=== PATIENT | male | born 1980 | race Caucasian/White ===

== ENCOUNTER 2020-10-27 14:27 | Emergency (ER) | payer OTHER, MEDICAID, SELFPAY ==
[2020-10-27 14:39] VITALS: BP 118/70; PULSE 72; RESP 16; TEMP 36.4; O2SAT 99; BMI 25.8
--- NOTE | 2020-10-27 14:55 | ED.GENADULT ---
HPI - General Adult General Chief complaint: Urogenital-Male Stated complaint: ANAL FISSURE, DRAINING, HURTS Time Seen by Provider: 10/27/20 14:30 Source: patient Mode of arrival: Ambulatory Limitations: no limitations History of Present Illness HPI narrative: Patient is a 39-year-old male who has had many weeks/months of issues with hemorrhoids and anal fissures. He has not followed up for any of these symptoms. He states that for the past couple days he has noticed pain with having bowel movements and also drainage. He also feels like there is a mass around his anal area. Related Data Home Medications Medication Instructions Recorded Confirmed No Known Home Medications 10/27/20 10/27/20 Allergies Allergy/AdvReac Type Severity Reaction Status Date / Time No Known Drug Allergies Allergy Verified 10/27/20 14:43 Review of Systems Constitutional Constitutional: Denies fever(s) Cardiovascular Cardiovascular: Denies chest pain and Denies dyspnea Respiratory Respiratory: Denies dyspnea Gastrointestinal Gastrointestinal: Denies abdominal pain Comments: Leakage around anus Integumentary/Breasts Skin/Breast: Denies rash Neurologic Neurologic: Denies behavioral changes Psychiatric Psychiatric: Denies behavioral changes Hematologic/Lymphatic On Anticoagulants: No Patient History Medical History Anal fissure Social History Smoking Status: Never smoker Smoking Status: Never smoker alcohol intake frequency: other Substance Use Type: does not use Exam Initial Vital Signs Initial Vital Signs: Vital Signs Temperature 97.6 F 10/27/20 14:39 Pulse Rate 72 10/27/20 14:39 Respiratory Rate 16 10/27/20 14:39 Blood Pressure 118/70 10/27/20 14:39 Pulse Oximetry 99 10/27/20 14:39 Const General: cooperative GI Inspection: non-distended Palpation: soft Other: Patient had normal rectal tone. He did have a 0.5 cm by 0.5 cm firm what appeared to be skin tag right next to his anus. Just posterior to this there was an area that was draining would look like. Material however there was only a small amount and could not express any more from the area. Internal exam shows no internal hemorrhoids. There does not appear to be any external hemorrhoids. Did not feel any mass in the area. I do have low suspicion for a perirectal/perianal abscess. I did not visualize any fissures although his history is consistent with this. Skin Lesions: no lesions Rashes: no rashes Neuro General: patient alert and patient awake Extrem General: capillary refill normal Psych Appearance: grossly normal Course Vital Signs Vital signs: Vital Signs - 8 hr 10/27/20 14:39 Temperature 97.6 F Pulse Rate 72 Respiratory Rate 16 Blood Pressure 118/70 Pulse Oximetry 99 Medical Decision Making MDM Narrative Medical decision making narrative: Based on his physical exam today do have low suspicion for a perianal/perirectal abscess although I do feel that he needs further workup with either a colonoscopy or a proctoscopy or anoscope. I did discuss the case with Dr. Byrne who was on-call for General surgery who stated the patient can follow-up as a outpatient. I discussed a good bowel regimen with the patient. Discussed return precautions and follow-up instructions. He expressed understanding and agreement. Discharge Plan Departure Patient Disposition: Home Clinical Impression: Anal fissure Instructions: Anal Fissure Activity Restrictions/Additional Instructions: I recommend that on Thursday you contact the [facility] at [phone]. Further workup of your symptoms does require evaluation by either General surgery or Gastroenterology it may require the need of further advanced imaging such as colonoscopy. Recommend that you find a bowel regiment that allows you to have normal soft regular bowel movements. You want to avoid constipation and also diarrhea. Return to the emergency department for any new or worsening symptoms Prescriptions: No Action No Known Home Medications RF: 0
--- NOTE | 2020-10-27 15:00 | PC.NURSE ---
Patient is concerned of anal fissure. Patient states he has noticed a foul smell leaking from rectum. Patient has had to leave work due to smell, patient has had dx of anal fissure for about 1.5 yrs. Discomfort has come and gone over the last year and half. Patient reports sensation of having to strain around golf ball size mass inside his rectum when he passes stool. Stools loose like soft serve ice cream today Denies fevers or chills, reports some nausea and one episode of vomiting he attributed to food he ate.
--- NOTE | 2020-10-27 15:02 | PC.NURSE ---
Rectal exam with Dr Amezcua. Small amount of purulent drainage noted, unable to express more. An external skin tag noted on anus. No obvious mass appreciated. patient tolerated well
== END 2020-10-27 15:39 | disposition home or self-care (01) ==
PROVIDERS: Emergency Provider Emergency Medicine
DX: K60.2 Anal fissure, unspecified (principal)
CPT/HCPCS: 99281

== ENCOUNTER → 2020-11-02 10:12 | Outpatient (CLI) | payer OTHER, MEDICAID, SELFPAY ==
[2020-11-02 10:49] LABS: COVID19 -Nasal RAPID Negative (Negative)
== END ==
PROVIDERS: Visit Provider Surgery
DX: Z20.822 Contact with and (suspected) exposure to COVID-19 (principal)
CPT/HCPCS: 87635; C9803

== ENCOUNTER 2020-11-05 10:32 | Day surgery (SDC) | payer OTHER, MEDICAID, SELFPAY ==
[2020-11-05] VITALS (11 sets, daily range): BP systolic 99–126; BP diastolic 63–93; PULSE 63–88; RESP 9–17; TEMP 36.6–36.7; O2SAT 95–100; BMI 26.5
[2020-11-05] MEDS: LACTATED RINGERS 1,000 ML 100 ML IV ×2 (10:53→12:56)
[2020-11-05] MEDS: metroNIDAZOLE 500 MG/100 ML PIGGYBACK 100 MG IV (10:54)
--- NOTE | 2020-11-05 11:30 | PM.PREOP ---
Pre-operative Note COVID-19 COVID-19 status: Negative Result date/Date tested (Pos, Neg/Pending): 11/02/20 Interval Note History & Physical reviewed/Exam performed by Physician: Yes Changes to H&P: No
[2020-11-05] MEDS: CEFAZOLIN 2 GM/100 ML FROZ.PIGGY IV (12:02)
--- NOTE | 2020-11-05 12:31 | SUR.OPER ---
Prone on padded OR bed, head in foam head support, gel chest rolls, gel pad under knees, pillow under lower legs, toes free of pressure, arms secured on padded arm boards at <90 degrees abduction. Safety belt at thigh.
[2020-11-05] MEDS: BUPIVACAINE 0.5% W/ EPI (PF) 30 ML VIAL INJ (12:47)
[2020-11-05] MEDS: BUPIVACAINE LIPOSOME 266 MG/20 ML VIAL INJ (12:47)
[2020-11-05] MEDS: DIBUCAINE 1% OINT 28 GM 1 APPLIC TOP (12:47)
--- NOTE | 2020-11-05 12:56 | PM.OP.1 ---
Operative Date/Time/Diagnoses Date of procedure: 11/05/20 Time of procedure: 12:56 Pre-op diagnosis: anal fistula, possible abscess Post-op diagnosis: other (small subcutaneous fistula going to a granulated cavity ) Procedure & Clinicians Procedure: Anorectal exam under anesthesia Fistulectomy Same procedure as scheduled: Yes Indications: Anal pain, drainage, foul odor; this is a patient who has noticed a foul odor, drainage, and occasional swelling of the anterior midline perianal area for three months. Surgeon: Reshma Salcedo Click Yes if Unassisted: Yes Anesthesia Type: General Operative Notes Findings: Fistula to a granulated cavity Specimen(s): none sent Procedure in detail: The patient was brought into the OR. Sequential compression devices were placed on both legs and turned on. Appropriate perioperative antibiotics were given. General anesthesia was induced and the patient was intubated. The patient was turned prone onto the OR table. All bony prominences were padded. The buttocks were taped apart. The perianal area was prepped and draped in sterile fashion with betadine prep. Surgical timeout was conducted. 0.5% Marcaine with epi was used to perform a four quadrant anal block using 2.5mL per quadrant for a total of 10mL. On external exam there were low grade external hemorrhoids, and an anterior midline skin tag. A speculum was placed in the anal canal and the anterior midline anoderm and anal canal were examined. A small opening was seen in the anterior midline anoderm associated with the large skin tag. An 18 gauge needle and syringe were used attempt to drain any local abscess cavity at the site of the patient's concern in the anterior midilne. I passed the needle into the perianal area and attempted to draw back fluid or purulence. No fluid was drawn back. Saline was injected into the area of concern in the anterior perineal area, and was not seen to drain into the anal canal. At this point, the decision was made to treat the small fistula that was identified in association with the skin tag. I placed a small probe through the fistula and it traversed just below the skin tag. It did not seem to involve any muscle. I used cautery to divide the skin overlying the probe. No muscle was seen. The skin tag was removed using cautery. Hemostasis was achieved using cautery. No other abnormality was identified. 10mL of Exparel was used to inject the anoderm at the site of the surgical wound. A large Gelfoam was then coated and rolled with Dibucaine and placed in the anal canal. A thick layer of Dibucaine was used to coat the anoderm. A stack of 4x4 gauze was then used to cover the anal opening and secured in place with mesh pants. The patient was transferred onto his hospital bed into supine position. He was then awakened from anesthesia and extubated. Needle, sponge, and instrument counts were correct x 2. The patient was transferred to the PACU in stable condition. Complications: none Post-operative Condition: stable Disposition: PACU
[2020-11-05] MEDS: MEPERIDINE 50 MG/ML INJ 25 MG IV (13:10)
[2020-11-05] MEDS: BENZOCAINE/MENTHOL 1 LOZ PKT 1 EACH PO (13:55)
== END 2020-11-05 15:10 | disposition home or self-care (01) ==
PROVIDERS: Referring Provider Surgery; Visit Provider Surgery
PROC: (CPT 46270; principal; 2020-11-05 11:45)
DX: K60.3 Anal fistula (principal); K64.4 Residual hemorrhoidal skin tags; K59.00 Constipation, unspecified; E03.9 Hypothyroidism, unspecified
CPT/HCPCS: 46270; 11200; 82962; C9290; J0330; J0690; J1100; J2175; J2250; J2405; J2704; J3010

== ENCOUNTER → 2021-02-11 17:26 | Outpatient (CLI) | payer OTHER, MEDICAID, SELFPAY ==
--- NOTE | 2021-02-11 17:27 | DI.MRI.S_ITS ---
PROCEDURE: MR PELIS WO/W CON INDICATIONS: Anal fistula, could not find in the operating room TECHNIQUE: Coronal HASTE through the pelvis, oblique axial and coronal T1 and T2 fast spin echo through the anal canal. After the administration of contrast, oblique axial and coronal VIBE or T1 fast spin echo with fast saturation through the anal canal. COMPARISON: None. FINDINGS: Image quality: Excellent. Anorectal region: No perianal fistulas or abscesses identified. No inflammatory fat stranding. Other soft tissues: Bladder wall thickness is normal. No free pelvic fluid. Visualized bowel loops are normal in caliber. Bones: Visualized bony structures demonstrate normal marrow signal. IMPRESSION: 1. No visible anal fistula or sinus tract. Dictated by: Audrey Davis M.D. on 02/12/2021 at 9:01 Approved by: Audrey Davis M.D. on 02/12/2021 at 9:18
== END ==
PROVIDERS: Referring Provider Surgery; Visit Provider Surgery
DX: K60.3 Anal fistula (principal)
CPT/HCPCS: 72197

== ENCOUNTER 2021-11-27 21:21 | Emergency (ER) | payer OTHER, MEDICAID, SELFPAY ==
[2021-11-27 21:24] VITALS: BP 131/70; PULSE 72; RESP 18; TEMP 36.6; O2SAT 97; BMI 27.2
--- NOTE | 2021-11-27 21:36 | DI.RAD.S_ITS ---
PROCEDURE: XR LUMBAR SPINE 2-3V INDICATIONS: lower back lifting injury TECHNIQUE: 3 views of the lumbar spine were acquired. COMPARISON: None. FINDINGS: Bones: 5 [id number] vertebrae are present. There is a mild leftward curvature of the thoracolumbar spine centered at L3-L4. There is mild multilevel degenerative disc disease within the mid and lower lumbar spine. Mild facet arthropathy also demonstrated in the lower lumbar spine. No vertebral body compression fractures. No subluxation. No suspicious bony lesions. Soft tissues: Overlying bowel gas pattern is normal. No suspicious soft tissue calcifications. IMPRESSION: 1. No fracture or subluxation. 2. Mild multilevel degenerative disc disease in the mid and lower lumbar spine. 3. Mild facet arthropathy in the lower lumbar spine. 4. Mild leftward curvature of the thoracolumbar spine. Dictated by: Elliot Walsh M.D. on 11/27/2021 at 22:11 Approved by: Elliot Walsh M.D. on 11/27/2021 at 22:13
--- NOTE | 2021-11-28 01:31 | ED_ITS ---
HPI - Back Pain/Injury General Chief Complaint: Back Pain/Injury Stated Complaint: lower back pain Time Seen by Provider: 11/28/21 01:31 Source: patient History of Present Illness HPI Narrative: 40-year-old gentleman with a history of hypothyroidism was leaning over early this morning to put his 40 lb 4-year-old child back and his crib and felt an acute a pole and tightness in his low back. Over the course of the day he has had increasing pain and spasm in the right low back area without any radicular signs or symptoms. He has not had any difficulty with voiding or stooling. No fevers, cough, chills, abdominal pain, vomiting or diarrhea. No skin rashes. He has never had similar complaints. He has not taken any medications. By this evening he has found that the spasm is so severe that he presents to the emergency room looking for help with pain control. Related Data Home Medications Medication Instructions Recorded Confirmed ascorbate calcium (vitamin C) 500 500 mg PO DAILY 10/30/20 11/13/20 mg tablet calcium carbonate 500 mg calcium 500 mg PO DAILY 10/30/20 11/13/20 (1,250 mg) tablet cholecalciferol (vitamin D3) 10 10 mcg PO DAILY 10/30/20 11/13/20 mcg (400 unit) capsule levothyroxine 175 mcg capsule 175 mcg PO DAILY 10/30/20 11/13/20 magnesium 30 mg tablet 30 mg PO DAILY 10/30/20 11/13/20 multivitamin 1 tab PO DAILY 10/30/20 11/13/20 selenium 200 mcg capsule 200 mcg PO DAILY 10/30/20 11/13/20 zinc 50 mg tablet 50 mg PO DAILY 10/30/20 11/13/20 Previous Rx's Medication Instructions Recorded docusate sodium 100 mg capsule 100 mg PO BID #20 cap 11/05/20 oxycodone 5 mg tablet 5 mg PO Q6H PRN #20 tab 11/05/20 diazepam 5 mg tablet 5 mg PO TID PRN #10 tab 11/28/21 Allergies Allergy/AdvReac Type Severity Reaction Status Date / Time rizatriptan [From Maxal] Allergy Severe Swelling Verified 11/27/21 21:29 of Lip/Tongue/Throat Review of Systems Review of Systems Narrative: Remainder of complete review of systems is otherwise unremarkable except for that included in the HPI. Patient History Medical History (Updated 11/28/21 @ 01:47 by Silvia Coffman MD) Anal fissure Hypothyroidism (acquired) Surgical History Hx of hand surgery Hx of shoulder surgery Social History marital status: household members: spouse occupational status: employed Smoking Status: Never smoker alcohol intake: never substance use type: does not use Smoking Status: Never smoker alcohol intake frequency: holidays/special occasions only Substance Use Type: does not use Exam Initial Vital Signs Initial Vital Signs: Vital Signs Temperature 97.9 F 11/27/21 21:24 Pulse Rate 72 11/27/21 21:24 Respiratory Rate 18 11/27/21 21:24 Blood Pressure 131/70 11/27/21 21:24 Pulse Oximetry 97 11/27/21 21:24 General: Healthy appearing, in pain but relatively comfortable lying flat on the gurney, Able to give a complete and coherent history. Well-nourished well- developed HEENT: Moist mucous membranes, normal sclera with reactive pupils, Respiratory: Lungs are clear to auscultation, no wheezing no rales no rhonchi. Full and symmetrical air movement Cardiac: Regular rate and rhythm no murmurs no bruits Abdomen: Soft, nontender, good bowel tones, no flank pain Spine: No midline thoracic or lumbar spine tenderness. He has moderate left- sided lumbar area paraspinous muscle spasm. Skin: Warm and dry, no rashes Neurologic: Grossly neurologically intact with no obvious asymmetries or abnormalities, normal lower extremity reflexes. No decreased sensation in the lower extremities. Extremities: No trauma, well perfused Psych: Cooperative, appropriate insight and affect Course Orders Ordered: ED Orders 11/27/21 21:36 XR lumbar spine 2-3V Stat Vital Signs Vital signs: Vital Signs - 8 hr 11/27/21 21:24 Temperature 97.9 F Pulse Rate 72 Respiratory Rate 18 Blood Pressure 131/70 Pulse Oximetry 97 MDM - Back Pain/Injury MDM Narrative Medical decision making narrative: 40-year-old gentleman with fairly classic complaint of low back pain. He has no red flags for complicated back pain or to suggest he needs additional imaging or lab work done. He has no risk factors for epidural abscess. He is not complaining of any symptoms that make me concerned for cauda equina. He has not tried any medications and we talked about the use of ibuprofen and Tylenol and using diazepam as a trip to muscle relaxant. Also recommended gentle early mobilization as well as ice to the area. He was feeling better after ibuprofen Tylenol and Valium prior to discharge from the emergency department. Questions are answered he is safe for home discharge Discharge Plan Departure Patient Disposition: Home Clinical Impression: Acute back pain Qualifiers: Back pain location: low back pain Back pain laterality: right Sciatica presence: without sciatica Qualified Code(s): M54.50 - Low back pain, unspecified Instructions: DI for Low Back Pain Activity Restrictions/Additional Instructions: I am sorry that you have strained your back Your clinical exam is actually quite reassuring. It feels like you have some moderate muscle spasm but there is not concern for infection, acute nerve injury or disc problems at this time. Using 400 mg of ibuprofen (2 [id number] pills) and 1 Tylenol every 6 hours can be very helpful in controlling pain. Using diazepam/Valium 5 mg up to every 8 hours can help with direct muscle spasm. It frequently is most helpful in the evening to allow you to relaxer he can get some sleep so that your body actually begins to heal itself. A prescription was electronically transmitted to [facility] for you. Ice to the area can also help with the muscle spasm. Heat can often be helpful as well. You can try alternating the 2. If you find that you are not improving within the next 1-2 weeks, please follow- up with your primary care provider. I hope you feel better Prescriptions: New diazepam 5 mg tablet 5 mg PO TID PRN (Reason: muscle spasm) Qty: 10 0RF No Action levothyroxine 175 mcg capsule 175 mcg PO DAILY 0RF cholecalciferol (vitamin D3) 10 mcg (400 unit) capsule 10 mcg PO DAILY 0RF ascorbate calcium (vitamin C) 500 mg tablet 500 mg PO DAILY 0RF magnesium 30 mg tablet 30 mg PO DAILY 0RF zinc 50 mg tablet 50 mg PO DAILY 0RF calcium carbonate 500 mg calcium (1,250 mg) tablet 500 mg PO DAILY 0RF selenium 200 mcg capsule 200 mcg PO DAILY 0RF multivitamin Tablet 1 tab PO DAILY 0RF oxycodone 5 mg tablet 5 mg PO Q6H PRN (Reason: post operative pain) Qty: 20 0RF docusate sodium 100 mg capsule 100 mg PO BID Qty: 20 0RF
[2021-11-28] MEDS: ACETAMINOPHEN 325 MG TABLET PO (01:51)
[2021-11-28] MEDS: diazePAM 5 MG TABLET PO (01:51)
[2021-11-28] MEDS: IBUPROFEN 400 MG TABLET PO (01:51)
--- NOTE | 2021-11-28 02:12 | PC.NURSE ---
Pt up and ambulated to the bathroom with a tender but steady gait
[2021-11-28 02:20] VITALS: BP 124/63; PULSE 81; RESP 18; O2SAT 99
== END 2021-11-28 02:15 | disposition home or self-care (01) ==
PROVIDERS: Emergency Provider Emergency Medicine
DX: M54.50 Low back pain, unspecified (principal)
CPT/HCPCS: 72100; 99283

== ENCOUNTER → 2022-09-22 09:34 | Outpatient (CLI) | payer OTHER, MEDICAID, SELFPAY ==
[2022-09-22 10:56] LABS: COVID19 -Nasal RAPID Negative (Negative)
== END ==
PROVIDERS: PCP Family Medicine; Visit Provider Surgery
DX: Z20.822 Contact with and (suspected) exposure to COVID-19 (principal); Z01.812 Encounter for preprocedural laboratory examination
CPT/HCPCS: 87635; C9803

== ENCOUNTER 2022-09-23 10:07 | Day surgery (SDC) | payer OTHER, MEDICAID, SELFPAY ==
[2022-09-18 10:35] VITALS: BMI 27.2
[2022-09-23] VITALS (7 sets, daily range): BP systolic 103–121; BP diastolic 64–79; PULSE 56–69; RESP 11–14; TEMP 36.2–36.6; O2SAT 96–100; BMI 27.6
[2022-09-23] MEDS: LACTATED RINGERS 1,000 ML 42 ML IV (11:05)
--- NOTE | 2022-09-23 13:08 | PM.PREOP ---
Pre-operative Note COVID-19 COVID-19 status: Negative Result date/Date tested (Pos, Neg/Pending): 09/22/22 Interval Note History & Physical reviewed/Exam performed by Physician: Yes Changes to H&P: No ASA Class (for procedural sedation): II
--- NOTE | 2022-09-23 14:21 | P.OP_ITS ---
Operative Date/Time/Diagnoses Date of procedure: 09/23/22 Time of procedure: 14:21 Pre-op diagnosis: Anal discharge Post-op diagnosis: same Procedure & Clinicians Procedure: Examination under anesthesia Same procedure as scheduled: Yes Surgeon: Miguel A Medina Operative Notes Procedure in detail: The patient was brought to the operating room and placed on the table in the supine position. General anesthesia was induced via LMA. He was placed in high lithotomy. The perineum was prepped and draped in the usual fashion and a time- out was performed. First, a wet lap was used to wipe away all of the Betadine. No obvious external opening was seen. A well lubricated finger was inserted i nto the rectum followed by 2 fingers. There were some hypertrophied anal papilla in the posterior right and posterior left positions but no palpable tract. The [place] retractor was inserted into the rectum and the rectal mucosa was inspected. There were no abnormality seen. There did appear to be a small scar in the anterior midline which may have been scar tissue from his prior surgery 2 years ago but there was no tract there. The fold of anoderm there was gently probed but it was a blind. The patient was awakened brought to recovery room EBL 0 Post-operative Condition: stable Disposition: PACU
--- NOTE | 2022-09-23 14:23 | SUR.OPER ---
Lithotomy on padded OR bed, head on pillow, arms secured on padded arm boards at <90 degrees abduction. Legs secured in padded yellow fins stirrups.
== END 2022-09-23 14:57 | disposition home or self-care (01) ==
PROVIDERS: PCP Family Medicine; Referring Provider Surgery; Visit Provider Surgery
PROC: (CPT 45990; principal; 2022-09-23 11:45)
DX: Z87.19 Personal history of other diseases of the digestive system (principal)
CPT/HCPCS: 45990; J2250; J2405; J2704; J3010